=== PATIENT | male | born 1955 | race African-American/Black ===

== ENCOUNTER 2022-05-02 16:51 | Inpatient (IN) | payer MEDICAID, OTHER ==
[~2022-05-02] VITALS: Ht 172.7 cm; Wt 56.2 kg
[2022-05-02] MEDS ORDERED: SODIUM CHLORIDE 0.9% 1,000 ML IV ONE ×2 (17:30→22:00)
[2022-05-02 17:49] LABS: CHLORIDE 104 mEq/L (98-107)
[2022-05-02 17:50] LABS: MEAN CORPUSCULAR HEMOGLOBIN 22.5 pg (28.0-32.0); MEAN CORPUSCULAR VOLUME 75.6 fL (80.0-94.0); MEAN PLATELET VOLUME 7.7 fl (7.4-10.4); PLATELET 395 x1000/uL (130-400); RED BLOOD CELL COUNT 2.65 mill/uL (4.7-6.1); RED CELL DISTRIBUTION WIDTH 23.3 % (11.6-14.6)
[2022-05-02 17:59] LABS: ETHANOL BLOOD < 10 mg/dL
[2022-05-02 19:09] LABS: PLATELET ESTIMATE NORMAL
[2022-05-02] MEDS ORDERED: AZITHROMYCIN 500MG/250ML 250 ML IV ONE (20:15)
[2022-05-02] MEDS ORDERED: PIPERACILLIN/TAZ 3.375G PREMIX 50 ML IV ONE (20:15)
[2022-05-02 20:55] LABS: CLARITY URINE CLOUDY (CLEAR); COLOR URINE DARK YELLOW (YELLOW); KETONES URINE TRACE (NEGATIVE); LEUKOCYTE ESTERASE URINE TRACE (NEGATIVE); NITRITE URINE NEGATIVE (NEGATIVE); OCCULT BLOOD URINE NEGATIVE (NEGATIVE); PH URINE 5.5 (4.5-8.0); PROTEIN URINE 2+ (NEGATIVE); SPECIFIC GRAVITY URINE 1.021 (1.005-1.030)
[2022-05-02 21:15] LABS: *AMPHETAMINES SCREEN URINE NEGATIVE (NEGATIVE); *BARBITURATES SCREEN URINE NEGATIVE (NEGATIVE); *BENZODIAZEPINES SCREEN URINE NEGATIVE (NEGATIVE); *COCAINE SCREEN URINE NEGATIVE (NEGATIVE); CANNABINOID URINE SCREEN NEGATIVE (NEGATIVE); METHADONE URINE SCREEN NEGATIVE (NEGATIVE); OPIATES URINE SCREEN NEGATIVE (NEGATIVE); PHENCYCLIDINE URINE SCREEN NEGATIVE (NEGATIVE)
[2022-05-02] MEDS ORDERED: ACETAMINOPHEN 325MG TABLET PO ONE (22:00)
[2022-05-03] VITALS (7 sets, daily range): BP systolic 97–126; BP diastolic 65–75
[2022-05-03] MEDS ORDERED: ACETAMINOPHEN 650MG SUPP PR PRN (07:30)
[2022-05-03] MEDS ORDERED: ONDANSETRON HCL 4MG/2ML INJ IV PRN (07:30)
[2022-05-03] MEDS ORDERED: PIPERACILLIN/TAZ 3.375G PREMIX 50 ML IV SCH (08:00)
[2022-05-03] MEDS ORDERED: PANT40TA51 PO (09:24)
[2022-05-03] MEDS: DEXT 5%/0.45% NACL 1000ML 1,000 ML IV SCH ×2 (09:42→21:37)
[2022-05-03] MEDS ORDERED: PANTOPRAZOLE SODIUM 40 MG/VIAL IV SCH (10:45)
[2022-05-03] MEDS: PIPERACILLIN/TAZOBACTAM 3.375 G in DEXTROSE 5% WATER 50 ML IV SCH ×3 (10:46→21:37)
[2022-05-03 13:19] LABS: HEMATOCRIT. 23.5 % (42.0-52.0); HEMOGLOBIN. 7.1 g/dL (14.0-18.0); MEAN CORPUSCULAR HEMOGLOBIN 24.3 pg (28.0-32.0); MEAN CORPUSCULAR VOLUME 80.6 fL (80.0-94.0); MEAN PLATELET VOLUME 8.2 fl (7.4-10.4); PLATELET 324 x1000/uL (130-400); RED BLOOD CELL COUNT 2.92 mill/uL (4.7-6.1); RED CELL DISTRIBUTION WIDTH 22.8 % (11.6-14.6)
[2022-05-03 13:39] LABS: TOTAL IRON BINDING CAPACITY 277 ug/dL (250-450)
[2022-05-03 13:58] LABS: NUCLEATED RED BLOOD CELLS 2 /100 WBC
[2022-05-03 13:59] LABS: PLATELET ESTIMATE NORMAL
[2022-05-03] MEDS ORDERED: PNEUMOCOCCAL 23-VAL P-SAC VAC 0.5 ML IM ONE (14:00)
[2022-05-03] MEDS ORDERED: NALOXONE HCL 0.4MG/ML VIAL IV PRN (16:15)
[2022-05-03] MEDS: HYDROMORPHONE HCL/PF 2MG/ML CPJ IV PRN (16:17)
[2022-05-03 17:16] LABS: FERRITIN 152 ng/mL (22-322)
[2022-05-03 17:18] LABS: FOLIC ACID (FOLATE) SERUM >20 ng/mL ng/mL (>5.38); VITAMIN B12 SERUM 566 pg/mL (211-911)
[2022-05-03 21:00] LABS: HEMATOCRIT 29.3 % (42.0-52.0)
[2022-05-03 21:23] LABS: TOTAL IRON BINDING CAPACITY 359 ug/dL (250-450)
[2022-05-03] MEDS: PANTOPRAZOLE SODIUM 40 MG/VIAL IV SCH (21:36)
[2022-05-04 00:30] LABS: HEMATOCRIT 27.1 % (42.0-52.0); HEMOGLOBIN 8.3 g/dL (14.0-18.0)
[2022-05-04 03:46] VITALS: BP 111/64
[2022-05-04] MEDS: PIPERACILLIN/TAZOBACTAM 3.375 G in DEXTROSE 5% WATER 50 ML IV SCH ×3 (05:28→21:31)
[2022-05-04] MEDS: HYDROMORPHONE HCL/PF 2MG/ML CPJ IV PRN (05:46)
[2022-05-04 06:01] LABS: INR 1.1; PROTHROMBIN TIME 12.1 sec (9.6-11.0)
[2022-05-04 06:21] LABS: HEMATOCRIT. 26.6 % (42.0-52.0); HEMOGLOBIN. 8.4 g/dL (14.0-18.0); MEAN CORPUSCULAR HEMOGLOBIN 25.4 pg (28.0-32.0); MEAN CORPUSCULAR VOLUME 80.7 fL (80.0-94.0); MEAN PLATELET VOLUME 8.2 fl (7.4-10.4); PLATELET 292 x1000/uL (130-400); RED BLOOD CELL COUNT 3.29 mill/uL (4.7-6.1); RED CELL DISTRIBUTION WIDTH 21.3 % (11.6-14.6)
[2022-05-04 06:36] LABS: CHLORIDE 110 mEq/L (98-107)
[2022-05-04 08:00] VITALS: BP 87/56
[2022-05-04] MEDS: PANTOPRAZOLE SODIUM 40 MG/VIAL IV SCH ×2 (09:30→20:28)
[2022-05-04] MEDS: DEXT 5%/0.45% NACL 1000ML 1,000 ML IV SCH (09:30)
[2022-05-04 12:00] VITALS: BP 97/61
[2022-05-04] MEDS ORDERED: PROPOFOL 200MG/20ML VIAL IV ONE (12:15)
[2022-05-04] MEDS ORDERED: MIDAZOLAM HCL 2 MG/2 ML VIAL ONE (12:17)
[2022-05-04] MEDS ORDERED: EPHEDRINE SULFATE 50MG/ML VIAL ONE (12:19)
[2022-05-04] MEDS ORDERED: PHENYLEPHRINE HCL 10 MG/ML 1ML (IV VIAL) IV ONE (12:21)
[2022-05-04] MEDS ORDERED: SIMETHICONE 40 MG/0.6 ML 15ML ONE (12:28)
[2022-05-04] MEDS: DEXT 5%/0.9% NACL 1,000 ML IV SCH ×2 (13:31→21:32)
[2022-05-04 16:00] VITALS: BP 118/61
[2022-05-04 20:00] VITALS: BP 132/85
[2022-05-04] MEDS ORDERED: BISACODYL 10MG SUPP PR NR (20:00)
[2022-05-04] MEDS: ACETAMINOPHEN 325MG TABLET PO PRN (21:31)
[2022-05-05] VITALS (11 sets, daily range): BP systolic 94–125; BP diastolic 45–81
[2022-05-05 06:16] LABS: HEMATOCRIT. 24.4 % (42.0-52.0); HEMOGLOBIN. 7.5 g/dL (14.0-18.0); MEAN CORPUSCULAR HEMOGLOBIN 25.2 pg (28.0-32.0); MEAN CORPUSCULAR VOLUME 81.9 fL (80.0-94.0); MEAN PLATELET VOLUME 8.4 fl (7.4-10.4); PLATELET 230 x1000/uL (130-400); RED BLOOD CELL COUNT 2.98 mill/uL (4.7-6.1); RED CELL DISTRIBUTION WIDTH 20.6 % (11.6-14.6)
[2022-05-05] MEDS: PIPERACILLIN/TAZOBACTAM 3.375 G in DEXTROSE 5% WATER 50 ML IV SCH ×3 (06:20→21:19)
[2022-05-05] MEDS: DEXT 5%/0.9% NACL 1,000 ML IV SCH ×2 (06:20→17:33)
[2022-05-05 06:44] LABS: CHLORIDE 111 mEq/L (98-107)
[2022-05-05 07:32] LABS: PLATELET ESTIMATE NORMAL
[2022-05-05] MEDS ORDERED: DEXT 5% WATER + KCL 40MEQ/L 1,000 ML IV SCH (08:00)
[2022-05-05] MEDS: PANTOPRAZOLE SODIUM 40 MG/VIAL IV SCH ×2 (08:50→21:18)
[2022-05-05] MEDS ORDERED: POTASSIUM CHLORIDE INJ 40 MEQ in DEXT 5% WATER 250 ML IV NR (10:00)
[2022-05-05] MEDS: ACETAMINOPHEN 325MG TABLET PO PRN (15:09)
[2022-05-05 17:04] LABS: PLATELET ESTIMATE NORMAL
[2022-05-06] VITALS: BP 95/59
[2022-05-06] MEDS: DEXT 5%/0.9% NACL 1,000 ML IV SCH ×2 (02:40→13:30)
[2022-05-06 04:00] VITALS: BP 108/61
[2022-05-06] MEDS: PIPERACILLIN/TAZOBACTAM 3.375 G in DEXTROSE 5% WATER 50 ML IV SCH ×2 (05:25→13:36)
[2022-05-06 07:34] LABS: HEMATOCRIT. 27.9 % (42.0-52.0); HEMOGLOBIN. 8.7 g/dL (14.0-18.0); MEAN CORPUSCULAR HEMOGLOBIN 25.1 pg (28.0-32.0); MEAN CORPUSCULAR VOLUME 80.2 fL (80.0-94.0); MEAN PLATELET VOLUME 8.2 fl (7.4-10.4); PLATELET 246 x1000/uL (130-400); RED BLOOD CELL COUNT 3.48 mill/uL (4.7-6.1); RED CELL DISTRIBUTION WIDTH 20.6 % (11.6-14.6)
[2022-05-06 07:52] LABS: CHLORIDE 111 mEq/L (98-107)
[2022-05-06 08:00] VITALS: BP 111/63
[2022-05-06] MEDS: PANTOPRAZOLE SODIUM 40 MG/VIAL IV SCH (09:24)
[2022-05-06] MEDS ORDERED: POTASSIUM CHLORIDE 20MEQ TABLET SR PO NR (10:30)
[2022-05-06 12:00] VITALS: BP 116/74
[2022-05-06 13:41] LABS: PLATELET ESTIMATE NORMAL
[2022-05-06 14:39] VITALS: BP 116/74
== END 2022-05-06 16:52 | disposition home or self-care (01) | DRG 720 ==
LOC: ER 16:51 → EDBEDREQ 17:23 → 8WST 05-03 04:28 → EDBEDREQDT 05-03 04:33 → EDBEDREQ 05-03 04:33 → EDBEDREQTM 05-03 04:33
PROVIDERS: ADMIT Hospitalist; ATTEND Hospitalist
PROC: 0D9670Z Drainage of Stomach with Drainage Device, Via Natural or Artificial Opening (ICD-10-PCS; 2022-05-03)
PROC: 30233N1 Transfusion of Nonautologous Red Blood Cells into Peripheral Vein, Percutaneous Approach (ICD-10-PCS; 2022-05-03)
PROC: 0DB68ZX Excision of Stomach, Via Natural or Artificial Opening Endoscopic, Diagnostic (ICD-10-PCS; principal; 2022-05-04)
DX: A41.9 Sepsis, unspecified organism (principal); J69.0 Pneumonitis due to inhalation of food and vomit; K56.609 Unspecified intestinal obstruction, unspecified as to partial versus complete obstruction; C16.9 Malignant neoplasm of stomach, unspecified; R64 Cachexia; E43 Unspecified severe protein-calorie malnutrition; D50.9 Iron deficiency anemia, unspecified; Z20.822 Contact with and (suspected) exposure to COVID-19; K92.1 Melena; Z85.028 Personal history of other malignant neoplasm of stomach; Z68.1 Body mass index [BMI] 19.9 or less, adult
CPT/HCPCS: 36415; 71045; 74018; 74176; 80053; 80305; 80320; 81003; 82607; 82728; 82746; 83540; 83550; 83735; 85014; 85018; 85025; 85044; 86850; 86900; 86920; 87426; 88305; 90732; 93970; 99291; C9113; C9803; J0456; J1170; J2250; J2370; J2405; J2543; J2704; J3480; J3490; J7030; J7042; J7060; P9016; G0480